=== PATIENT | female | born 1995 | race Caucasian/White ===

== ENCOUNTER 2025-01-23 17:44 | Emergency (ER) | payer OTHER, SELFPAY ==
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
[2025-01-23 18:02] VITALS: BP 124/89; PULSE 100; RESP 16; TEMP 36.3; O2SAT 100
== END 2025-01-23 18:56 | disposition home or self-care (01) ==
PROVIDERS: Emergency Provider Nurse Practitioner
DX: S16.1XXA Strain of muscle, fascia and tendon at neck level, initial encounter (principal); V49.40XA Driver injured in collision with unspecified motor vehicles in traffic accident, initial encounter
CPT/HCPCS: 72040; 99203; G0463